=== PATIENT | male | born 1950 | race Caucasian/White ===

== ENCOUNTER 2021-09-20 10:38 | Observation (INO) ==
[2021-09-20] MEDS ORDERED: XOPENEX 1.25 MG/3 ML NEBULE NEB ONE (13:14)
[2021-09-20] MEDS ORDERED: SALINE 3% 15 ML NEB TX ONE (13:14)
[2021-09-20] MEDS ORDERED: TUSSIONEX PENNKINETIC SUSP PO PRN (13:18)
[2021-09-20] MEDS ORDERED: SOLU-Medrol 125 MG VIAL IVP ONE (13:18)
[2021-09-20 13:39] VITALS: BMI 23.0
[2021-09-20] MEDS: XOPENEX 1.25 MG/3 ML NEBULE NEB SCH ×2 (13:42→20:30)
[2021-09-20] MEDS ORDERED: SALINE 3% 15 ML NEB TX NEB ONE (13:42)
[2021-09-20 13:46] LABS: BASOPHILS # (AUTO) 0.1 X10^3/uL (0.0-0.1); BASOPHILS % (AUTO) 0.4 % (0.2-1.0); HEMATOCRIT 37.1 % (42.0-54.0); HEMOGLOBIN 12.9 g/dL (13.5-18.0); LYMPHOCYTES % (AUTO) 4.6 % (21.0-51.0); MEAN CORPUSCULAR HEMOGLOBIN 31.2 pg (27.0-34.0); MEAN CORPUSCULAR HGB CONC 34.7 g/dL (33.0-35.0); MEAN CORPUSCULAR VOLUME 89.8 fL (80.0-100.0); MEAN PLATELET VOLUME 7.5 fL (7.4-11.0); MONOCYTES % (AUTO) 4.7 % (0.0-13.0); NEUTROPHILS # (AUTO) 19.4 x10^3/uL (2.2-4.8); NEUTROPHILS % (AUTO) 90.3 % (42.0-75.0); RED BLOOD COUNT 4.13 X10^6/uL (4.7-6.0); RED CELL DISTRIBUTION WIDTH 13.9 % (11.6-16.5); WHITE BLOOD COUNT 21.4 X10^3/uL (3.6-10.0)
[2021-09-20 13:48] LABS: ABG ALLEN TEST POS; ABG BASE EXCESS 4.8 mmol/L (-2.0-2.0); ABG HCO3 28.1 mmol/L (22-26)
[2021-09-20 13:58] LABS: ALBUMIN 2.9 g/dL (3.4-5.0); CALCIUM 6.1 mg/dL (8.5-10.1); CARBON DIOXIDE 24.9 mmol/L (21-32); CREATININE 2.12 mg/dL (0.70-1.30); TOTAL PROTEIN 6.7 g/dL (6.4-8.2)
[2021-09-20] MEDS ORDERED: NS 1/2 1,000 ML IV 1,000 ML IV ONE (14:14)
[2021-09-20] MEDS: ROBITUSSIN DM PO SCH ×3 (14:18→21:21)
[2021-09-20] MEDS: VSL#3 PO SCH (14:18)
[2021-09-20] MEDS: LEVAQUIN PREMIX IV 750 MG 750 MG/150 ML BAG IV SCH (14:18)
[2021-09-20] MEDS: NS 1/2 1,000 ML IV 1,000 ML IV SCH (14:18)
[2021-09-20 14:38] LABS: BAND NEUTROPHILS % 3 % (0-10)
[2021-09-20 14:39] LABS: PLATELET MORPHOLOGY COMMENT NORMAL (NORMAL)
[2021-09-20 17:07] LABS: CKMB % 1.7 % (<4); CREATINE KINASE MB 1.7 ng/mL (0-4.0)
[2021-09-20] MEDS ORDERED: SOLU-Medrol 40 MG VIAL ONE (20:26)
[2021-09-20] MEDS: SOLU-Medrol 40 MG VIAL IVP SCH (21:21)
[2021-09-20] MEDS: NovoLIN R (or HumuLIN R) SUBCUT PRN (21:22)
[2021-09-20 22:06] LABS: CKMB % 1.9 % (<4); CREATINE KINASE MB 1.7 ng/mL (0-4.0)
--- NOTE | 2021-09-20 22:10 | RAD ---
EXAM: CHEST X-RAYHISTORY: Pneumonia.TECHNIQUE: PA and lateral chest x-ray dated September 20, 2021 at 2:19 PM.COMPARISON: CXR dated May 08, 2020.FINDINGS:The heart size and mediastinum are within normal limits. There is lung parenchymal hyperinflation and hyperlucency in keeping with COPD/emphysema. There is no acute parenchymal infiltrate, pleural effusion, or pneumothorax seen. Status post anterior cervical spine fusion with metallic hardware in situ. The visualized bony structures are within normal limits.IMPRESSION:1. No evidence for acute cardiopulmonary disease seen.2. COPD/emphysema.3. No significant interval change from the previous exam.Electronically signed by: Lance Lee (September 20, 2021 22:09:34)
[2021-09-20 22:45] LABS: BILIRUBIN,URINE NEGATIVE (NEGATIVE); BLOOD/HEMOGLOBIN,URINE NEGATIVE (NEGATIVE); GLUCOSE, URINE 3+ (NEGATIVE); KETONES,URINE NEGATIVE (NEGATIVE); LEUKOCYTE ESTERASE ,URINE NEGATIVE (NEGATIVE); NITRITES,URINE NEGATIVE (NEGATIVE); PROTEIN,URINE NEGATIVE (NEGATIVE); UROBILINOGEN,URINE NORMAL (NORMAL)
[2021-09-20 22:50] LABS: APPEARANCE,URINE CLEAR (CLEAR); COLOR,URINE STRAW (YELLOW)
[2021-09-21] MEDS ORDERED: NS 1/2 1,000 ML IV 1,000 ML IV ONE (01:55)
[2021-09-21] MEDS: NS 1/2 1,000 ML IV 1,000 ML IV SCH (03:22)
[2021-09-21 03:51] LABS: BASOPHILS % (AUTO) 0.1 % (0.2-1.0); HEMATOCRIT 34.5 % (42.0-54.0); HEMOGLOBIN 12.1 g/dL (13.5-18.0); LYMPHOCYTES # (AUTO) 0.5 X10^3/uL (1.3-2.9); LYMPHOCYTES % (AUTO) 3.2 % (21.0-51.0); MEAN CORPUSCULAR HEMOGLOBIN 30.9 pg (27.0-34.0); MEAN CORPUSCULAR VOLUME 88.4 fL (80.0-100.0); MEAN PLATELET VOLUME 7.6 fL (7.4-11.0); MONOCYTES # (AUTO) 0.3 x10^3/uL (0.3-0.8); MONOCYTES % (AUTO) 1.7 % (0.0-13.0); NEUTROPHILS # (AUTO) 15.4 x10^3/uL (2.2-4.8); RED CELL DISTRIBUTION WIDTH 13.6 % (11.6-16.5); WHITE BLOOD COUNT 16.3 X10^3/uL (3.6-10.0)
[2021-09-21 03:58] LABS: ALBUMIN 2.7 g/dL (3.4-5.0); CARBON DIOXIDE 30.5 mmol/L (21-32); COR CA(FOR HYPOALB) 6.8 mg/dL (8.5-10.1); CREATININE 2.01 mg/dL (0.70-1.30); TOTAL PROTEIN 6.2 g/dL (6.4-8.2)
[2021-09-21 04:08] LABS: CALCIUM 5.8 mg/dL (8.5-10.1)
[2021-09-21 04:11] LABS: CKMB % 1.9 % (<4); CREATINE KINASE MB 1.6 ng/mL (0-4.0)
[2021-09-21 04:15] LABS: PLATELET MORPHOLOGY COMMENT NORMAL (NORMAL)
[2021-09-21] MEDS: XOPENEX 1.25 MG/3 ML NEBULE NEB SCH (06:05)
[2021-09-21] MEDS: NovoLIN R (or HumuLIN R) SUBCUT PRN ×2 (06:12→11:39)
[2021-09-21] MEDS: SOLU-Medrol 40 MG VIAL IVP SCH (06:12)
[2021-09-21] MEDS: ROBITUSSIN DM PO SCH (09:10)
[2021-09-21] MEDS: VSL#3 PO SCH (09:10)
[2021-09-21] MEDS: LEVAQUIN PREMIX IV 750 MG 750 MG/150 ML BAG IV SCH (09:10)
[2021-09-21 09:51] VITALS: BP 158/99
[2021-09-21] MEDS ORDERED: SNACK - Diabetic Appropriate PO SCH (20:00)
[2021-09-23 02:09] LABS: HEMOGLOBIN A1C 6.4 %
--- NOTE | 2021-10-09 22:13 | DR.CARTERS ---
Short Stay Summary - Admission Date Date of Admission: 09/20/21 - Discharge Date Discharge Date: 09/21/21 - Admission Diagnoses (1) COVID-19 Status: Acute (2) Dysphagia Status: Acute (3) Chest pain Status: Acute (4) Sore throat Status: Acute - Hospital Course Hospital Course: IS A 71 YEAR OLD PATIENT OF OURS. HE PRESENTED TO THE HOSPITAL A DIRECT ADMISSION, OBSERVATION STATUS, FOR TREATMENT OF COVID-19, DYSPHAGIA, SORE THROAT, AND CHEST PAIN. SYMPTOMS STARTED 2-3 DAYS AGO. HE REPORTS HAVING A POSITIVE HOME COVID TEST ON 09/19/21, BUT HIS DAUGHTER WHOM HE LIVES WITH TESTED POSITIVE LAST WEEK. HE HAS BEEN TAKING A MEDROL DOSEPACK AND PAXLOVID SINCE 09/15/21. HIS PMH INCLUDES: HTN, COPD, GERD, HYPERLIPIDEMIA, DEPRESSION, COLON RESECTION, CHOLECYSTECTOMY, BACK SURGERY X 3, NECK SURGERY X 4, AND CARPEL TUNNEL RELEASE. ON ARRIVAL TO THE HOSPITAL, HIS VITALS WERE 98.1-88-28-95%-143/94. LABS WERE OBTAINED. WBC 21.4, RBC 4.13, HGB 12.9, HCT 37.1, PLT COUNT 447, SODIUM 136, POTASSIUM 3.3, CHLORIDE 95, BUN 37, CREATININE 2.12, GLUCOSE 272, CALCIUM 6.1, AST 13, ALT 30, ALK PHOS 157, TOTAL PROTEIN 6.7, ALBUMIN 2.9. CARDIAC ENZYMES WERE WITHIN NORMAL LIMITS. URINALYSIS WAS OBTAINED AND WAS UNREMARKABLE. AN ABG WAS OBTAINED AND REVEALED: PH 7.500, PC02 36, P02 80, HC03 28.1, 02 SAT 97, BASE EXCESS 4.8, A-A GRADIENT 25, FI02 21.0. A CHEST XRAY WAS OBTAINED AND REVEALED: 1. No evidence for acute cardiopulmonary disease seen. 2. COPD/emphysema. 3. No significant interval change from the previous exam. EKG REVEALED NSR WITH HR 72. HE WAS STARTED ON NORMAL SALINE, ROBITUSSIN DM 10ML PO QID, TUSSIONEX 5ML PO Q12H PRN, LEVAQUIN 750MG IV DAILY, PROBIOTICS 2 CAPS PO DAILY, SOLU-MEDROL 80MG IV Q8H, XOPENEX NEB TX TID, OTBS ACHS, AND HUMULIN R SLIDING SCALE. WE PLAN TO OBTAIN SERIAL CARDIAC ENZYMES AND EKGS. OTHERWISE, WE WILL FOLLOW UP WITH AM LABS AND CHEST XRAY AND CONTINUE TO MONITOR. ON THE MORNING FOLLOWING ADMISSION, PATIENT IS ALERT AND ORIENTED, LYING IN BED ON MORNING ROUNDS. HE CONTINUES WITH COMPLAINTS OF SORE THROAT, BUT DENIES CHEST PAIN OR OTHER SYMPTOMS OTHER THAN DIFFICULTY SLEEPING AT NIGHT. ON EXAMINATION, HEART IS REGULAR IN RATE AND RHYTHM. BILATERAL LUNGS NOTED WITH DIMINISHED LUNG SOUNDS THROUGHOUT. ABDOMEN IS ROUND, SOFT, AND NON-TENDER WITH NORMAL BOWEL SOUNDS NOTED IN ALL QUADRANTS. NO UPPER OR LOWER EXTREMITY EDEMA NOTED. HIS VITALS THIS MORNING ARE 97.7-107-20-95%-158/99. LABS WERE OBTAINED. WBC 16.3, RBC 3.90, HGB 12.1, HCT 35.4, SODIUM 137, POTASSIUM 3.3, CHLORIDE 96, BUN 31, CREATININE 2.01, GLUCOSE 301, CALCIUM 5.8, AST 11, ALT 29, ALK PHOS 122, TOTAL PROTEIN 6.2, ALBUMIN 2.7. CARDIAC ENZYMES HAVE REMAINED NORMAL AND NO CHANGES HAVE BEEN NOTED TO EKGS. WE PLANNED FOR DISCHARGE. INSTRUCTIONS FOR MEDICATIONS AND FOLLOW-UP WERE DISCUSSED WITH PATIENT AND FAMILY. THEY VERBALIZED U NDERSTANDING OF ALL ORDERS. HE WAS GIVEN NEW PRESCRIPTIONS FOR TRAZODONE 50MG PO HS. HE WAS INSTRUCTED TO FOLLOW-UP IN THE OFFICE IN 1 WEEK. HE WAS DISCHARGED HOME IN IMPROVED CONDITION. TIME SPENT ON CLINICAL ASSESSMENT, REVIEWING LABS AND IMAGING, DECISION MAKING, DISCHARGE INSTRUCTIONS, PREPARING DISCHARGE PAPERS, AND DOCUMENTATION GREATER THAN 75 MINUTES. - Discharge Medications Discharge Medications: Home Medication List albuterol sulfate [ProAir HFA] 1 puff INHALATION Q4-6H PRN 09/20/21 [History] bupropion HCl 150 mg PO DAILY 09/20/21 [History] diphenoxylate-atropine 1 tab PO DIRECTED 09/20/21 [History] duloxetine 60 mg PO DAILY 09/20/21 [History] ferrous sulfate [FeroSul] 325 mg PO DAILY 09/20/21 [History] hydrocodone-acetaminophen 1 tab PO Q4H PRN 09/20/21 [History] lisinopril-hydrochlorothiazide 0.5 tab PO HS 09/20/21 [History] metoprolol succinate 50 mg PO DAILY 09/20/21 [History] omeprazole 40 mg PO DAILY 09/20/21 [History] tamsulosin 0.4 mg PO DAILY 09/20/21 [History] trazodone 50 mg PO QHS PRN #30 tab 09/21/21 [Rx] Prescriptions: trazodone Irving Becerra Risks, benefits, and alternatives of opioids discussed: Yes - Discharge Plan Disposition: 01 HOME, SELF-CARE Condition: Stable Prescriptions: trazodone 50 mg PO QHS PRN #30 tab PRN Reason: - Follow up/Referrals Follow up/Referrals: Irving Becerra [Primary Care Provider] - 1 WEEK - Instructions Instructions: Nonspecific Chest Pain, Adult, [id number]-kh-[id number], Chronic Obstructive Pulmonary Disease, Anbh-ag-[id number], Community-Acquired Pneumonia, Adult, Fena-hu-Iuoa Additional Instructions: Diet as tolerated. Activity as tolerated. Follow up in [address] Becerra or sooner if needed. Continue antibiotics as prescribed. Forms: Excuse From Work or School, Precautions for COVID19, [facility], Patient Portal, Social Distancing
== END 2021-09-21 11:50 | disposition home or self-care (01) ==
LOC: MED/SURG
PROVIDERS: ADMIT Internal Medicine; ATTEND Internal Medicine

== ENCOUNTER 2023-02-23 12:13 | Observation (INO) ==
[2023-02-23] MEDS ORDERED: TUSSIONEX PENNKINETIC SUSP PO PRN (13:33)
[2023-02-23 13:36] VITALS: BMI 22.3
[2023-02-23] MEDS: VSL#3 PO SCH (14:00)
[2023-02-23] MEDS ORDERED: LEVAQUIN PREMIX IV 750 MG 750 MG/150 ML BAG IV SCH (14:00)
[2023-02-23] MEDS ORDERED: XOPENEX 1.25 MG/3 ML NEBULE NEB SCH (14:00)
[2023-02-23] MEDS: ROBITUSSIN DM PO SCH ×2 (14:00→21:14)
[2023-02-23] MEDS: SOLU-Medrol 40 MG VIAL IVP SCH ×2 (14:01→21:14)
[2023-02-23] MEDS ORDERED: NS 1/2 1,000 ML IV 1,000 ML IV ONE ×2 (14:05→19:52)
[2023-02-23 14:06] LABS: BASOPHILS % (AUTO) 0.4 % (0.2-1.0); EOSINOPHILS # (AUTO) 0.1 x10^3/uL (0.0-0.2); EOSINOPHILS % (AUTO) 0.6 % (0.9-2.9); HEMATOCRIT 39.4 % (42.0-54.0); HEMOGLOBIN 13.3 g/dL (13.5-18.0); LYMPHOCYTES # (AUTO) 0.9 X10^3/uL (1.3-2.9); LYMPHOCYTES % (AUTO) 7.3 % (21.0-51.0); MEAN CORPUSCULAR HEMOGLOBIN 28.9 pg (27.0-34.0); MEAN CORPUSCULAR HGB CONC 33.7 g/dL (33.0-35.0); MEAN CORPUSCULAR VOLUME 85.8 fL (80.0-100.0); MEAN PLATELET VOLUME 7.8 fL (7.4-11.0); MONOCYTES # (AUTO) 0.3 x10^3/uL (0.3-0.8); MONOCYTES % (AUTO) 2.3 % (0.0-13.0); NEUTROPHILS # (AUTO) 10.5 x10^3/uL (2.2-4.8); NEUTROPHILS % (AUTO) 89.4 % (42.0-75.0); PLATELET COUNT 419 X10^3/uL (150.0-450.0); RED CELL DISTRIBUTION WIDTH 13.9 % (11.6-16.5); WHITE BLOOD COUNT 11.8 X10^3/uL (3.6-10.0)
[2023-02-23] MEDS: NS 1/2 1,000 ML IV 1,000 ML IV SCH (14:15)
[2023-02-23 14:18] LABS: ALANINE AMINOTRANSFERASE 20 Units/L (12-78); ALKALINE PHOSPHATASE 135 Units/L (46-116); ASPARTATE AMINO TRANSFERASE 17 Units/L (15-37); BLOOD UREA NITROGEN 16 mg/dL (7-18); CALCIUM 7.2 mg/dL (8.5-10.1); CARBON DIOXIDE 32.3 mmol/L (21-32); CHLORIDE 99 mmol/L (98-107); COR NA(FOR HYPERGLY) 140 mmol/L (136-145); CREATININE 1.36 mg/dL (0.70-1.30); GLUCOSE 138 mg/dL (65-99); POTASSIUM 3.3 mmol/L (3.5-5.1); SODIUM 139 mmol/L (136-145); TOTAL PROTEIN 7.3 g/dL (6.4-8.2); eGFR NON BLACK RACES 55 (>60)
[2023-02-23] MEDS: XOPENEX 1.25 MG/3 ML NEBULE NEB SCH (16:55)
[2023-02-23] MEDS: PULMICORT NEB TX 0.5 MG NEB SCH (17:12)
[2023-02-23] MEDS ORDERED: CONSULT PHARMACY - POTASSIUM & MAGNESIUM XX SCH (18:00)
[2023-02-23] MEDS: MAG-OX TAB PO SCH ×3 (20:23→23:14)
[2023-02-23] MEDS: MAGNESIUM SULFATE 1 GRAM/100 mL PREMIX 1 G/100 ML BAG IV SCH ×2 (21:15→23:17)
[2023-02-23] MEDS: KLOR-CON PO SCH ×2 (21:29→23:16)
[2023-02-24] MEDS: MAG-OX TAB PO SCH (00:45)
[2023-02-24] MEDS: MAGNESIUM SULFATE 1 GRAM/100 mL PREMIX 1 G/100 ML BAG IV SCH ×2 (00:46→01:45)
[2023-02-24] MEDS: SOLU-Medrol 40 MG VIAL IVP SCH ×3 (05:27→22:21)
[2023-02-24] MEDS: NS 1/2 1,000 ML IV 1,000 ML IV SCH ×2 (05:37→18:50)
[2023-02-24 06:05] LABS: BASOPHILS % (AUTO) 0.2 % (0.2-1.0); HEMATOCRIT 37.6 % (42.0-54.0); HEMOGLOBIN 12.8 g/dL (13.5-18.0); LYMPHOCYTES # (AUTO) 0.7 X10^3/uL (1.3-2.9); LYMPHOCYTES % (AUTO) 9.3 % (21.0-51.0); MEAN CORPUSCULAR HEMOGLOBIN 29.4 pg (27.0-34.0); MEAN CORPUSCULAR VOLUME 86.5 fL (80.0-100.0); MEAN PLATELET VOLUME 8.2 fL (7.4-11.0); MONOCYTES # (AUTO) 0.2 x10^3/uL (0.3-0.8); MONOCYTES % (AUTO) 2.6 % (0.0-13.0); NEUTROPHILS # (AUTO) 6.3 x10^3/uL (2.2-4.8); NEUTROPHILS % (AUTO) 87.9 % (42.0-75.0); PLATELET COUNT 463 X10^3/uL (150.0-450.0); RED BLOOD COUNT 4.35 X10^6/uL (4.7-6.0); RED CELL DISTRIBUTION WIDTH 13.7 % (11.6-16.5); WHITE BLOOD COUNT 7.2 X10^3/uL (3.6-10.0)
[2023-02-24 06:15] LABS: CALCIUM 7.7 mg/dL (8.5-10.1); COR CA(FOR HYPOALB) 8.5 mg/dL (8.5-10.1); CREATININE 1.64 mg/dL (0.70-1.30); MAGNESIUM 2.3 mg/dL (2.0-2.9); POTASSIUM 3.3 mmol/L (3.5-5.1); TOTAL PROTEIN 7.1 g/dL (6.4-8.2)
[2023-02-24] MEDS ORDERED: CONSULT PHARMACY - POTASSIUM & MAGNESIUM XX SCH (07:00)
--- NOTE | 2023-02-24 07:14 | RAD ---
EXAM:Portable chestHISTORY:Shortness of breath, COPD exacerbationCOMPARISON:02/23/2023FINDINGS: r with COPD. No pleural effusions are identified. Bony thorax is unremarkable.IMPRESSION:Lungs hyperinflated but free of acute infiltrates, consistent with COPD in the appropriate clinical settingTHIS IS AN ELECTRONICALLY VERIFIED FINAL [id number]/2023 7:11 AM - Electronically signed by Rolando Blum MD
--- NOTE | 2023-02-24 07:15 | RAD ---
EXAM:Portable chestHISTORY:COPD exacerbationCOMPARISON:09/20/2021FINDINGS: r alveolar infiltrates or pleural effusions are identified. Bony thorax is unremarkable.IMPRESSION:Lungs hyperinflated but free of acute infiltrates, consistent with COPD in the appropriate clinical settingTHIS IS AN ELECTRONICALLY VERIFIED FINAL [id number]/2023 7:12 AM - Electronically signed by Rolando Blum MD
[2023-02-24] MEDS: VSL#3 PO SCH (08:39)
[2023-02-24] MEDS: ROBITUSSIN DM PO SCH ×5 (08:39→20:42)
[2023-02-24] MEDS: PULMICORT NEB TX 0.5 MG NEB SCH ×2 (08:43→21:00)
[2023-02-24] MEDS: XOPENEX 1.25 MG/3 ML NEBULE NEB SCH ×4 (08:44→21:00)
[2023-02-24] MEDS ORDERED: K-DUR TAB 20 MEQ PO SCH (09:00)
[2023-02-24] MEDS ORDERED: LOMOTIL PO SCH (11:00)
[2023-02-24] MEDS ORDERED: CYMBALTA PO SCH (11:00)
--- NOTE | 2023-02-24 11:10 | DR.UPDATE ---
H&P Update Prescription drug monitoring program results: PDMP reviewed with concerns identified H&P Reviewed: Yes Any changes to H&P?: Yes Changes noted:: WAS A DIRECT ADMISSION, OBSERVATION STATUS, FOR TREATMENT OF COPD EXACERBATION WITH ACUTE BRONCHITIS. HE HAS RECEIVED OUTPATIENT TREATMENT OF DOXYCYCLINE 100MG BID, NEBULIZER TREATMENTS, AND HIS INHALERS WITHOUT IMPROVEMENT IN SYMPTOMS. ON ADMISSION, HIS VITALS WERE: 98.2-83-23-93%-145/90. LABS WERE OBTAINED. WBC 11.8, RBC 4.60, HGB 13.3, HCT 39.4, PLT COUNT 419, D-DIMER 0.74, SODIUM 139, POTASSIUM 3.3, CHLORIDE 99, CARBON DIOXIDE 32.3, BUN 16, CREATININE 1.36, GLUCOSE 138, CALCIUM 7.2, MAGNESIUM 0.6, AST 17, ALT 20, ALK PHOS 135, TOTAL PROTEIN 7.3, ALBUMIN 3.0. COVID, INFLUENZA, AND RSV SWABS WERE NEGATIVE. A RESPIRATORY VIRAL SWAB WAS SENT OFF. BLOOD CULTURES WERE SET UP. A CHEST XRAY WAS OBTAINED ON ADMISSION AND REVEALED: Lungs hyperinflated but free of acute infiltrates, consistent with COPD in the appropriate clinical setting. ON ADMISSION HE WAS STARTED ON NASAL CANNULA AT 2 LPM, NS AT 75 ML/HR, LEVAQUIN 750MG IV Q48H, XOPENEX NEBS QID, PULMICORT NEBS BID, TUSSIONEX 5ML Q12H PRN, ROBITUSSIN DM 10ML QID, SOLU-MEDROL 80MG IV Q8H, PROBIOTICS, AND LOVENOX 40MG SC DAILY. HIS HOME MEDICATIONS OF WELLBUTRIN, CYMBALTA, FERROUS GLUCONATE, NEURONTIN, NORCO, MEGACE, TOPROL XL, PRILOSEC, AND FLOMAX WERE RESUMED. WE WILL CONSULT PHARMACY FOR REPLACEMENT OF HIS MAGNESIUM AND POTASSIUM. OTHERWISE, WE PLAN TO FOLLOW UP WITH AM LABS AND CHEST XRAY AND CONTINUE TO MONITOR. TIME SPENT ON CLINICAL ASSESSMENT, REVIEWING LABS AND IMAGING, DECISION MAKING, AND DOCUMENTATION GREATER THAN 45 MINUTES. ADMISSION DX: COPD EXACERBATION, ACUTE BRONCHITIS, SHORNTESS OF BREATH, HYPOMAGNESEMIA, HYPOKALEMIA, HTN, DEPRESSION, GERD. Patient was examined?: Yes Vital Signs: Temp Pulse Pulse Resp BP BP Pulse Ox 02/24/23 07:00 02/24/23 08:00 97.6 F 116 H 20 161/100 90 L 02/24/23 08:44 111 H 98 02/24/23 08:44 02/24/23 04:00 98.7 F 88 22 163/77 96 02/24/23 00:00 97.7 F 87 21 166/84 98 02/23/23 20:00 98.1 F 110 H 21 131/94 95 02/23/23 19:00 02/23/23 16:00 97.3 F L 101 H 20 167/91 92 L 02/23/23 12:35 84 22 88 L 02/23/23 13:15 84 88 L 02/23/23 13:15 02/23/23 12:35 02/23/23 13:08 98.2 F 83 23 145/90 93 L O2 Del Method O2 Flow Rate FiO2 02/24/23 07:00 Room Air 02/24/23 08:00 Room Air 02/24/23 08:44 02/24/23 08:44 Nasal Cannula 2 28 02/24/23 04:00 Room Air 02/24/23 00:00 Nasal Cannula 2 02/23/23 20:00 Room Air 02/23/23 19:00 Room Air 02/23/23 16:00 Room Air 02/23/23 12:35 Nasal Cannula 02/23/23 13:15 02/23/23 13:15 Nasal Cannula 2 02/23/23 12:35 Room Air 02/23/23 13:08 Room Air
[2023-02-24] MEDS: PriLOSEC PO SCH (11:14)
[2023-02-24] MEDS: NEURONTIN CAP 100 MG PO SCH (11:14)
[2023-02-24] MEDS: FLOMAX PO SCH (11:14)
[2023-02-24] MEDS: FERROUS GLUCONATE PO SCH (11:14)
[2023-02-24] MEDS: MEGACE PO SCH ×2 (11:15→20:44)
[2023-02-24] MEDS: CYMBALTA PO SCH (11:15)
[2023-02-24] MEDS: TOPROL XL PO SCH (11:15)
[2023-02-24] MEDS: WELLBUTRIN XL 150 MG (DAILY) PO SCH (11:15)
[2023-02-24] MEDS: NORCO 10/325 TAB PO SCH ×2 (11:16→13:10)
[2023-02-24] MEDS: LOVENOX INJ 40 MG SYR SC SCH (11:17)
[2023-02-24] MEDS: DUONEB 0.5 MG/3 MG (3 mL) NEB ONE ×2 (13:11→13:12)
[2023-02-24] MEDS ORDERED: NORCO 10/325 TAB PO PRN (15:33)
[2023-02-25] MEDS ORDERED: NS 1/2 1,000 ML IV 1,000 ML IV ONE (03:59)
[2023-02-25 05:38] LABS: BASOPHILS % (AUTO) 0.1 % (0.2-1.0); HEMATOCRIT 36.1 % (42.0-54.0); HEMOGLOBIN 12.1 g/dL (13.5-18.0); LYMPHOCYTES # (AUTO) 0.6 X10^3/uL (1.3-2.9); LYMPHOCYTES % (AUTO) 3.3 % (21.0-51.0); MEAN CORPUSCULAR HEMOGLOBIN 29.2 pg (27.0-34.0); MEAN CORPUSCULAR HGB CONC 33.5 g/dL (33.0-35.0); MEAN CORPUSCULAR VOLUME 87.4 fL (80.0-100.0); MEAN PLATELET VOLUME 8.2 fL (7.4-11.0); MONOCYTES # (AUTO) 0.4 x10^3/uL (0.3-0.8); MONOCYTES % (AUTO) 2.3 % (0.0-13.0); NEUTROPHILS # (AUTO) 17.2 x10^3/uL (2.2-4.8); NEUTROPHILS % (AUTO) 94.3 % (42.0-75.0); PLATELET COUNT 424 X10^3/uL (150.0-450.0); RED BLOOD COUNT 4.13 X10^6/uL (4.7-6.0); RED CELL DISTRIBUTION WIDTH 14.1 % (11.6-16.5)
[2023-02-25 05:48] LABS: WHITE BLOOD COUNT 18.2 X10^3/uL (3.6-10.0)
[2023-02-25 05:49] LABS: PLATELET MORPHOLOGY COMMENT NORMAL (NORMAL)
[2023-02-25 05:55] LABS: ALANINE AMINOTRANSFERASE 17 Units/L (12-78); ALBUMIN 2.8 g/dL (3.4-5.0); ALKALINE PHOSPHATASE 120 Units/L (46-116); ASPARTATE AMINO TRANSFERASE 15 Units/L (15-37); BLOOD UREA NITROGEN 19 mg/dL (7-18); CALCIUM 8.1 mg/dL (8.5-10.1); CARBON DIOXIDE 31.9 mmol/L (21-32); CHLORIDE 100 mmol/L (98-107); COR CA(FOR HYPOALB) 9.1 mg/dL (8.5-10.1); COR NA(FOR HYPERGLY) 141 mmol/L (136-145); CREATININE 1.45 mg/dL (0.70-1.30); GLUCOSE 167 mg/dL (65-99); POTASSIUM 4.4 mmol/L (3.5-5.1); SODIUM 139 mmol/L (136-145); TOTAL PROTEIN 6.6 g/dL (6.4-8.2); eGFR NON BLACK RACES 51 (>60)
[2023-02-25] MEDS: SOLU-Medrol 40 MG VIAL IVP SCH (06:10)
--- NOTE | 2023-02-25 07:07 | RAD ---
EXAM:CHEST, 1 VIEWHISTORY:SOB ;COMPARISON:02/24/2023.TECHNIQUE:AP view of the chestFINDINGS:The cardiac and mediastinal contours are normal in size. Lungs are hyperexpanded. Similar-appearing bilateral scattered mild interstitial opacities. Blunted costophrenic sulci. No pneumothorax.IMPRESSION:No significant change compared to prior radiograph. COPD with likely chronic mild interstitial disease. Blunted costophrenic sulci usually due to scarring in COPD pleural effusions are not excluded. If there is clinical need to evaluate for pulmonary nodules, CT chest is recommended.THIS IS AN ELECTRONICALLY VERIFIED FINAL [id number]/2023 7:04 AM - Electronically signed by Joselito Mendoza MD
[2023-02-25 08:50] VITALS: PULSE 83
[2023-02-25] MEDS ORDERED: LEVAQUIN PREMIX IV 750 MG 750 MG/150 ML BAG IV SCH (09:00)
[2023-02-25] MEDS: XOPENEX 1.25 MG/3 ML NEBULE NEB SCH (09:21)
[2023-02-25] MEDS: PULMICORT NEB TX 0.5 MG NEB SCH (09:21)
[2023-02-25] MEDS: NS 1/2 1,000 ML IV 1,000 ML IV SCH (10:57)
[2023-02-25] MEDS: LOVENOX INJ 40 MG SYR SC SCH (11:00)
[2023-02-25] MEDS: PriLOSEC PO SCH (11:00)
[2023-02-25] MEDS: CYMBALTA PO SCH (11:01)
[2023-02-25] MEDS: FLOMAX PO SCH (11:01)
[2023-02-25] MEDS: ROBITUSSIN DM PO SCH (11:01)
[2023-02-25] MEDS: FERROUS GLUCONATE PO SCH (11:01)
[2023-02-25] MEDS: MEGACE PO SCH (11:01)
[2023-02-25] MEDS: WELLBUTRIN XL 150 MG (DAILY) PO SCH (11:01)
[2023-02-25] MEDS: NEURONTIN CAP 100 MG PO SCH (11:01)
[2023-02-25] MEDS: TOPROL XL PO SCH (11:01)
[2023-02-25] MEDS: VSL#3 PO SCH (11:02)
[2023-02-25] MEDS ORDERED: CATAPRES TAB 0.1 MG PO ONE (11:15)
--- NOTE | 2023-02-25 11:47 | EKG ---
Test Reason : HIGH BP 198/89 Blood Pressure : */* mmHG Vent. Rate : 84 BPM Atrial Rate : 84 BPM P-R Int : 164 ms QRS Dur : 60 ms QT Int : 366 ms P-R-T Axes : 15 -21 -10 degrees QTc Int : 432 ms Normal sinus rhythm Normal ECG No previous ECGs available Confirmed by Rj Knight ([id number]) on 02/27/2023 10:19:52 AM Referred By: Confirmed By: Rj Knight
[2023-02-25 11:59] VITALS: RESP 20; TEMP 97.9; O2SAT 97
[2023-02-25 12:51] VITALS: BP 146/78
== END 2023-02-25 12:58 | disposition home or self-care (01) ==
LOC: MED/SURG
PROVIDERS: ADMIT Internal Medicine; ATTEND Internal Medicine
DX: R74.8 Abnormal levels of other serum enzymes; K21.9 Gastro-esophageal reflux disease without esophagitis; M51.16 Intervertebral disc disorders with radiculopathy, lumbar region; R06.02 Shortness of breath; J20.8 Acute bronchitis due to other specified organisms; E83.42 Hypomagnesemia; I10 Essential (primary) hypertension; J44.1 Chronic obstructive pulmonary disease with (acute) exacerbation; E87.6 Hypokalemia; F32.89 Other specified depressive episodes; Z20.822 Contact with and (suspected) exposure to COVID-19